=== PATIENT | female | born 1980 ===

== ENCOUNTER 2018-10-23 08:48 | Outpatient (CLI) | payer OTHER ==
--- NOTE | 2018-10-23 09:41 | RAD ---
LUMBAR SPINE THREE VIEWS: HISTORY: Lumbar radicular pain, M54.16. COMPARISON: None. FINDINGS: No acute fracture or malalignment. No significant listhesis. No translation with flexion or extensi on. There are upper abdomen surgical clips. No significant degenerative disk space narrowing. IMPRESSION: Normal examination. POS: [facility]
== END 2018-10-23 08:49 | disposition home or self-care (01) ==
LOC: RAD 08:48
PROVIDERS: ATTEND Nurse Practitioner Family
DX: M54.16 Radiculopathy, lumbar region (principal)
CPT/HCPCS: 72100